=== PATIENT | female | born 1980 | race Caucasian/White ===

== ENCOUNTER 2019-09-11 11:27 | Emergency (ER) | payer OTHER ==
[2019-09-11 11:56] VITALS: BMI 17.6
--- NOTE | 2019-09-11 12:37 | PDOC ---
History of Present Illness - History of Present Illness Initial Comments: 09/11/19 12:37 39f with pmh of Down's Syndrome, Moderate MR, Myopia, Chronic Otitis, presents to the Ed from [facility] due to the fact that she can't tolerate her secretions since last night. She reportedly tried to push on her belly yesterday to help get something out. No respiratory distress. Tried to be fed this morning but refused food. Is drooling abundantly. <Floyd Quick - Last Filed: 09/11/19 17:03> <Ingrid Mcclain - Last Filed: 09/11/19 17:04> - General Chief Complaint: Choking Sensation Stated Complaint: THROAT PAIN Time Seen by Provider: 09/11/19 12:17 Past History - Past Medical History CVA: No (Elliott's [place]) COPD: No Other medical history: Down's Syndrome, Moderate MR, Myopia, Chronic Otitis, - Surgical History Cardiac Surgery: Yes (pacemaker (1990)) - Psycho Social/Smoking Cessation Hx Smoking History: Never smoked Hx Alcohol Use: No Drug/Substance Use Hx: No <Floyd Quick - Last Filed: 09/11/19 17:03> <Ingrid Mcclain - Last Filed: 09/11/19 17:04> - Past Medical History Allergies/Adverse Reactions: Allergies Allergy/AdvReac Type Severity Reaction Status Date / Time Penicillins Allergy Verified 09/11/19 11:41 Home Medications: Ambulatory Orders Cholecalciferol (Vitamin D3) [Vitamin D] 2,000 unit PO DAILY 09/11/19 Citalopram Hydrobromide [Citalopram HBr] 20 mg PO DAILY 09/11/19 Levothyroxine [Synthroid -] 50 mcg PO DAILY 09/11/19 Pedi Multivit 158/Iron/Vit K1 [Cerovite Jr Tablet Chew] 1 tab PO DAILY 09/11/19 Review of Systems - Review of Systems Able to Perform ROS?: No (MR) <Floyd Quick - Last Filed: 09/11/19 17:03> *Physical Exam - Vital Signs Last Vital Signs Temp Pulse Resp BP Pulse Ox 97.3 F L 79 18 108/48 L 96 09/11/19 11:42 09/11/19 11:42 09/11/19 11:42 09/11/19 11:42 09/11/19 11:42 - Physical Exam General Appearance: Yes: Moderate Distress, Thin HEENT: positive: EOMI, ALYSHA, Other (Macroglossia, unable to appreciate throat. ) Respiratory/Chest: positive: Lungs Clear, Normal Breath Sounds. negative: Chest Tender, Respiratory Distress Cardiovascular: positive: Regular Rhythm, Regular Rate, S1, S2 Gastrointestinal/Abdominal: positive: Normal Bowel Sounds, Flat, Soft. negative : Tender Musculoskeletal: positive: Normal Inspection Extremity: positive: Normal Capillary Refill, Normal Inspection, Normal Range of Motion Integumentary: positive: Normal Color, Dry, Warm Neurologic: positive: Other (MR at baseline, responds to commands) <Floyd Quick - Last Filed: 09/11/19 17:03> - Vital Signs Last Vital Signs Temp Pulse Resp BP Pulse Ox 97.9 F 79 18 107/59 L 99 09/11/19 16:57 09/11/19 11:42 09/11/19 16:57 09/11/19 16:57 09/11/19 16:57 <Ingrid Mcclain - Last Filed: 09/11/19 17:04> ED Treatment Course - LABORATORY CBC & Chemistry Diagram: 09/11/19 12:25 09/11/19 12:25 - RADIOLOGY Radiology Studies Ordered: Category Date Time Status SOFT TISSUE NECK CT W/O CONTR [CT] Stat CT Scan 09/11/19 12:17 Ordered CHEST PA & LAT [RAD] Stat Radiology 09/11/19 12:17 Ordered <Floyd Quick - Last Filed: 09/11/19 17:03> - LABORATORY CBC & Chemistry Diagram: 09/11/19 12:25 09/11/19 12:25 - ADDITIONAL ORDERS Additional order review: Laboratory Results 09/11/19 09/11/19 09/11/19 12:35 12:35 12:35 PT with INR Cancelled 12.50 INR Cancelled 1.06 PTT (Actin FS) 31.9 Sodium Potassium Chloride Carbon Dioxide Anion Gap BUN Creatinine Est GFR (CKD-EPI)AfAm Est GFR (CKD-EPI)NonAf Random Glucose Calcium Total Bilirubin AST ALT Alkaline Phosphatase Total Protein Albumin Beta HCG, Quant Blood Type Cancelled Antibody Screen Cancelled 09/11/19 12:25 PT with INR INR PTT (Actin FS) Sodium 139 Potassium 4.7 Chloride 105 Carbon Dioxide 25 Anion Gap 9 BUN 13.4 Creatinine 1.0 Est GFR (CKD-EPI)AfAm 81.04 Est GFR (CKD-EPI)NonAf 69.92 Random Glucose 104 Calcium 9.0 Total Bilirubin 1.5 H AST 62 H ALT 39 Alkaline Phosphatase 98 Total Protein 8.1 Albumin 3.8 Beta HCG, Quant < 1.0 Blood Type Antibody Screen 09/11/19 12:25 RBC 4.44 MCV 99.4 H MCHC 33.8 RDW 12.8 MPV 8.3 Neutrophils % 79.1 Lymphocytes % 15.9 Monocytes % 4.0 Eosinophils % 0.4 Basophils % 0.6 - RADIOLOGY Radiology Studies Ordered: Category Date Time Status ABDOMEN & PELVIS CT WITH CONTR [CT] Stat CT Scan 09/11/19 14:20 Ordered <Ingrid Mcclain - Last Filed: 09/11/19 17:04> Medical Decision Making - Medical Decision Making 09/11/19 15:55 39f with pmh of Down's Syndrome, Moderate MR, Myopia, Chronic Otitis, presents to the Ed from [facility] due to the fact that she can't tolerate her secretions since last night. This is likely stuck food bolus. Consulting GI. Soft neck tissue CT: The airway at and above the epiglottis is mildly distended. There is an absence of air where the esophagus should begin over a distance of approximately 3.7 cm. Air is seen more distally in the esophagus. This could be related to a bolus of food but is nonspecific. If it does represent a bolus of food, such as a is not specifically delineated. 09/11/19 16:[address] Zuniga with GI who advised transferring patient due to possible complications of patient's airway as she has macroglossia and difficult to access pharynx. Spoke to [facility], accepted under Dr. León <Floyd Quick - Last Filed: 09/11/19 17:03> Discharge - Discharge Information Problems reviewed: Yes - Admission No - Transfer to Acute Care Facility Receiving Facility Name: [facility] Accepting Physician:: Dr. Hemphill and Dr. Martinez <Floyd Quick - Last Filed: 09/11/19 17:03> <Ingrid Mcclain - Last Filed: 09/11/19 17:04> - Discharge Information Clinical Impression/Diagnosis: Esophageal obstruction due to food impaction Disposition: TRANSFER ACUTE CARE/OTHER HOSP - Follow up/Referral Referrals: ON STAFF,NOT [Primary Care Provider] - - Patient Discharge Instructions - Post Discharge Activity
[2019-09-11 12:38] LABS: BASO % 0.6 % (0-2.0); EOS % 0.4 % (0-4.5); HEMATOCRIT 44.1 % (32.4-45.2); HEMOGLOBIN 14.9 GM/dL (10.7-15.3); LYMPH % 15.9 % (8-40); MCH 33.7 pg (25.7-33.7); MCHC 33.8 g/dl (32.0-36.0); MEAN CELL VOLUME 99.4 fl (80-96); MEAN PLT VOLUME 8.3 fl (7.5-11.1); NEUT % 79.1 % (42.8-82.8); PLATELET COUNT 214 K/MM3 (134-434); RBC 4.44 M/mm3 (3.60-5.2); RDW 12.8 % (11.6-15.6); WHITE BLOOD COUNT 5.1 K/mm3 (4.0-10.0)
[2019-09-11 13:16] LABS: INR 1.06 (0.83-1.09); PROTHROMBIN TIME (PATIENT) 12.5 SEC (9.7-13.0)
[2019-09-11 13:19] LABS: ACTIVATED PTT 31.9 SECONDS (25.2-36.5)
--- NOTE | 2019-09-11 13:19 | PDOC ---
Attending Attestation - Resident Resident Name: QuickFloyd - ED Attending Attestation I have performed the following: I have examined & evaluated the patient, The case was reviewed & discussed with the resident, I agree w/resident's findings & plan, Exceptions are as noted - HPI HPI: 09/11/19 13:13 39 yo F h/o downs, MR , pacemaker here with concern for choking episode last night. per staff, pt was eating and suddenly starting pushing on her stomach as if she was trying to do the heimlech manuever. since that time she hasn't been tolerating po, has been spitting her saliva. pt is nonverbal points if she has pain and follows commands intermittently at baseline. no f/c no other complaints per staff. this am they tried to give her the breakfast, and she pushed it away, spitting everything out. - Physicial Exam PE: 09/11/19 13:19 awake alert . attempt to visualize pharynx, pt unable to see tonsils. pt poorly compliant with exam. no stridor. lungs clear bilat heart rrr mrg abd soft nt nd thin. ext wwp no edema. no calf tenderness. - Medical Decision Making 09/11/19 13:20 39 yo F refusing to swallow secretions, questionable story of choking during feed. differential is broad, possible food bolus impaction. sore throat or pharyngitis. other intrabdominal process or infection. plan ct chest abd and pelvis. eval for bolus. cxr, soft tissue neck. will d/w GI will likely require admission for faliure to tolerate PO possible endoscopy. 09/11/19 14:23 pt with possible food bolus in her espophagus, nonspecific finding. will d/w GI. likely require admission labs unremarkable. 09/11/19 16:58 d/w GI due to concerns pt potential difficulty airway, small mouth, large tongue , downs and Mr will likely require general anesthesia. unable to get GI evaluation until late evening. as no back up services. will require transfer for higher level of care, potential ENT involvment. d/w [facility], accepted by IM there Dr ALVARENGA. pt to be transferred. 09/11/19 17:59
[2019-09-11 13:23] LABS: ALBUMIN 3.8 g/dl (3.4-5.0); ALK PHOS 98 U/L (45-117); ANION GAP 9 MMOL/L (8-16); BILIRUBIN,TOTAL 1.5 mg/dL (0.2-1); BLOOD UREA NITROGEN 13.4 mg/dL (7-18); CHLORIDE 105 mmol/L (98-107); CO2 25 mmol/L (21-32); GLUCOSE,RANDOM 104 mg/dL (74-106); POTASSIUM 4.7 mmol/L (3.5-5.1); SGOT/AST 62 U/L (15-37); SGPT/ALT 39 U/L (13-61); SODIUM 139 mmol/L (136-145); TOT PROT 8.1 g/dl (6.4-8.2)
[2019-09-11 16:59] VITALS: TEMP 97.9
[2019-09-11 17:12] VITALS: BP 107/60; PULSE 87
== END 2019-09-11 19:15 | disposition short-term general hospital (02) ==
LOC: JER 11:27
DX: K22.2 Esophageal obstruction (principal); Q90.9 Down syndrome, unspecified; F71 Moderate intellectual disabilities; H66.90 Otitis media, unspecified, unspecified ear; H52.10 Myopia, unspecified eye; Z88.0 Allergy status to penicillin; Z86.69 Personal history of other diseases of the nervous system and sense organs; Z95.0 Presence of cardiac pacemaker
CPT/HCPCS: 36415; 70490-TC; 71046-TC-FY; 80053; 84702; 85025; 85610; 85730; 99285-25